=== PATIENT | male | born 1955 | race Caucasian/White ===

== ENCOUNTER 2023-06-16 09:59 | Outpatient (AMB) | payer MEDICARE, SELFPAY ==
--- NOTE | 2023-06-16 10:37 | HO.NEPHOV ---
HPI HPI Comments History of Present Illness Details I had the privilege of seeing Hernan for evaluation of labile hypertension. He has no history of coronary artery disease, CVA, CHF, renal artery stenosis, peripheral arterial disease or carotid stenosis. He claimed to have borderline high blood pressure for some time which had been progressively getting higher and his primary care physician had started him on amlodipine 10 mg daily. His blood pressure continues to be on the higher side during the day. He does not have any chest pain, abdominal pain, shortness of breath, proximal nocturnal dyspnea, orthopnea, pedal edema or urinary symptoms. His renal functions are normal. He denies flushing, palpitation, diarrhea, weight loss, uncontrolled thyroid disease or orthostatic symptoms. He does not take any excess nonsteroidal anti-inflammatory medications and try to contain sodium in his diet. He is a bit anxious but otherwise feels well. [facility] Medical History (Updated 06/16/23 @ 21:04 by Kve Arenas MD) Swelling of right hand Myofascial neck pain Moderate persistent asthma Migraine Major depression Hyperlipidemia History of malignant neoplasm of prostate Headache History of adenomatous polyp of colon Erectile dysfunction Cervical radiculopathy Benign essential hypertension Anxiety Surgical History (Updated 06/16/23 @ 10:48 by Talya Swartz MA) History of hernia repair History of shoulder surgery History of prostatectomy History of partial colectomy Family History (Updated 06/16/23 @ 10:49 by Talya Swartz MA) Mother Asthma COPD (chronic obstructive pulmonary disease) Colon cancer Hypertension Social History (Updated 06/16/23 @ 10:43 by Talya Swartz MA) Alcohol intake: never Patient Tobacco Use Status: Former Tobacco user Vital Signs 06/16/23 10:44 Height 5 ft 9 in Weight 158 lb 8 oz BMI 23.4 BP 140/80 H Blood Pressure Location Lt brachial Position Sitting Pulse 69 Pulse Source Pulse Oximeter Physical Exam Vital Signs: Last Vital Signs Pulse 69 06/16/23 10:44 BP 140/80 H 06/16/23 10:44 BMI result Body Mass Index 23.4 Const General: comfortable and no acute distress Orientation/consciousness: patient oriented x3 HEENT Head: Yes normocephalic Mouth: Normal oral and palatal mucosa present Eyes EOM: EOMs intact bilaterally Neck Neck: Yes supple Resp Auscultation: clear to auscultation bilaterally Cardio Jugular venous distension: no JVD Rate: regular rate GI Palpation (GI): Soft to palpation Auscultation: normal bowel sounds General: Yes no CVA tenderness Back/Spine/Pelvis Back: no CVA tenderness Skin General skin exam: no rashes or lesions noted Neuro General: patient oriented x3 and moves all extremities Extrem General: Yes no pedal edema Assessment & Plan Assessment & Plan (1) Hypertension: Code(s): I10 - Essential (primary) hypertension Qualifiers: Hypertension type: primary hypertension Qualified Code(s): I10 - Essential (primary) hypertension Plan Hernan has hypertensive disorder. He has no history of coronary disease, CVA, CHF, peripheral arterial disease, renal artery stenosis or carotid artery stenosis. He has no orthostatic symptoms, flushing, sweating, palpitation, diarrhea. He has no history of hypokalemia, hypercalcemia or uncontrolled thyroid disease. He denies any symptoms of sleep apnea. He had been taking amlodipine 10 mg daily. I ordered secondary workup including Doppler of his renal arteries given his serum creatinine is 1.1. Given his anxious personality, I started him on metoprolol succinate 12.5 mg daily. I explained side effects of the same. He is going to closely monitor his blood pressure at home as well. I will arrange a 24 hour blood pressure monitor through my office for further evaluation. He should contain his sodium in the diet, maintain good activity and good hydration. All his questions were answered. Time spent for retrieving data, patient encounter and documentation 39 minutes. Follow-up given. Orders: Orders TSH reflex Free T4 Today I10 - Essential (primary) hypertension US renal doppler Today I10 - Essential (primary) hypertension UA and rflx microscopic Today I10 - Essential (primary) hypertension Protein Creatinine Ratio, Ur Today I10 - Essential (primary) hypertension Metanephrines, Plasma Today I10 - Essential (primary) hypertension US renal BI Today I10 - Essential (primary) hypertension Medications: New metoprolol succinate ER 12.5 mg (1/2 x 25 mg) PO DAILY 30 days 15 tabs 3RF Coding Level of Care Code New Pt Level 4 (92978) Diagnoses Primary hypertension I10 Hypertension type: primary hypertension Results Reviewed Nephrology Results: No Data to Display
[2023-06-16 10:44] VITALS: BP 140/80; PULSE 69; BMI 23.4
== END 2023-06-16 11:23 | disposition home or self-care (01) ==
PROVIDERS: PCP Family Medicine; Visit Provider Internal Medicine Nephrology
DX: I10 Essential (primary) hypertension (principal)
CPT/HCPCS: 99204

== ENCOUNTER → 2023-06-16 09:59 | Outpatient (BNVA) | payer MEDICARE, SELFPAY | PROVIDERS: PCP Family Medicine; Visit Provider Internal Medicine Nephrology | DX: I10 Essential (primary) hypertension (principal) | CPT/HCPCS: 99202 ==

== ENCOUNTER 2023-07-13 09:14 | Outpatient (REF) | payer MEDICARE, SELFPAY ==
[2023-07-13 11:14] LABS: Appearance Urine Clear; Color Urine Yellow; Glucose Urine UA Negative (Negative); Leukocyte Esterase Urine Negative (Negative); Nitrite Urine Negative (Negative); PH 5.5 (5.0-9.0); Specific Gravity - Urine 1.015 (1.005-1.025); Urine Blood Negative (Negative); Urine Ketones Negative (Negative); Urine Protein Negative (Neg-Trace)
[2023-07-13 12:18] LABS: Total Protein Urine Random < 7 mg/dL (<12)
[2023-07-13 12:31] LABS: TSH reflex Free T4 1.63 uIU/mL (0.32-4.0)
== END 2023-07-13 09:15 | disposition home or self-care (01) ==
LOC: HO.WFDLDS 09:14
PROVIDERS: Visit Provider Internal Medicine Nephrology
DX: I10 Essential (primary) hypertension (principal)
CPT/HCPCS: 36415; 81003; 82570; 83835; 84156; 84443

== ENCOUNTER 2023-07-14 07:53 | Outpatient (REF) | payer MEDICARE, SELFPAY ==
[2023-07-21 06:13] LABS: Metanephrine, Free 43 pg/mL (<=57); Normetanephrines, Free 129 pg/mL (<=148); Total Metanephrine, Free 172 pg/mL (<=205)
== END 2023-07-14 07:54 | disposition home or self-care (01) ==
LOC: HO.LAB 07:53
PROVIDERS: Visit Provider Internal Medicine Nephrology
DX: I10 Essential (primary) hypertension (principal)
CPT/HCPCS: 36415; 83835

== ENCOUNTER 2023-07-19 09:59 | Outpatient (REF) | payer MEDICARE, SELFPAY ==
--- NOTE | ~2023-07-19 | US_ITS ---
EXAMINATION: ULTRASOUND RENAL WITH DOPPLER CLINICAL INFORMATION: Essential hypertension. COMPARISON: None. TECHNIQUE: Real-time grayscale, color Doppler, and duplex Doppler evaluation of the kidneys and renal vasculature was performed. FINDINGS: RENAL MEASUREMENTS: Right: 10.3 x 5.5 x 5.4 cm (Sag x AP x TV) Left: 10.1 x 5.2 x 5.1 cm (Sag x AP x TV) The renal parenchyma appears normal. No hydronephrosis or nephrolithiasis. DOPPLER INTERROGATION: AORTA: Mid aorta: 131 cm/sec RIGHT MAIN RENAL ARTERY: Proximal: 142 cm/sec Mid: 84 cm/sec Distal: 81 cm/sec LEFT MAIN RENAL ARTERY: Proximal: 170 cm/sec Mid: 145 cm/sec Distal: 87 cm/sec RENAL-AORTIC RATIO (RAR): Right: Not calculated due to mid aortic velocity outside of range 40-100 cm/s making RAR inaccurate. Left: Not calculated due to mid aortic velocity outside of range 40-100 cm/s making RAR inaccurate. SEGMENTAL RESISTIVE INDICES: Right: 0.71-0.78 Left: 0.71-0.77 RENAL VEINS: Right: Patent with normal waveform. Left: Patent with normal waveform. US/US renal doppler IMPRESSION: No evidence of hemodynamically significant peripheral arterial disease.
--- NOTE | ~2023-07-19 | US_ITS ---
EXAMINATION: ULTRASOUND RENAL WITH DOPPLER CLINICAL INFORMATION: Essential hypertension. COMPARISON: None. TECHNIQUE: Real-time grayscale, color Doppler, and duplex Doppler evaluation of the kidneys and renal vasculature was performed. FINDINGS: RENAL MEASUREMENTS: Right: 10.3 x 5.5 x 5.4 cm (Sag x AP x TV) Left: 10.1 x 5.2 x 5.1 cm (Sag x AP x TV) The renal parenchyma appears normal. No hydronephrosis or nephrolithiasis. DOPPLER INTERROGATION: AORTA: Mid aorta: 131 cm/sec RIGHT MAIN RENAL ARTERY: Proximal: 142 cm/sec Mid: 84 cm/sec Distal: 81 cm/sec LEFT MAIN RENAL ARTERY: Proximal: 170 cm/sec Mid: 145 cm/sec Distal: 87 cm/sec RENAL-AORTIC RATIO (RAR): Right: Not calculated due to mid aortic velocity outside of range 40-100 cm/s making RAR inaccurate. Left: Not calculated due to mid aortic velocity outside of range 40-100 cm/s making RAR inaccurate. SEGMENTAL RESISTIVE INDICES: Right: 0.71-0.78 Left: 0.71-0.77 RENAL VEINS: Right: Patent with normal waveform. Left: Patent with normal waveform. US/US renal BI IMPRESSION: No evidence of hemodynamically significant peripheral arterial disease.
== END 2023-07-19 10:00 | disposition home or self-care (01) ==
LOC: HO.US 09:59
PROVIDERS: PCP Family Medicine; Visit Provider Internal Medicine Nephrology
DX: I10 Essential (primary) hypertension (principal)
CPT/HCPCS: 76775; 93975

== ENCOUNTER 2023-07-28 09:59 | Outpatient (AMB) | payer MEDICARE, SELFPAY ==
[2023-07-28 10:18] VITALS: BP 118/60; PULSE 66; O2SAT 97; BMI 24.5
--- NOTE | 2023-07-28 10:18 | HO.NEPHOV ---
HPI HPI Comments History of Present Illness Details I had the privilege of seeing Hernan for follow up of labile hypertension. He has no history of coronary artery disease, CVA, CHF, renal artery stenosis, peripheral arterial disease or carotid stenosis. He claimed to have borderline high blood pressure for some time which had been progressively getting higher and his primary care physician had initially started him on amlodipine 10 mg daily. He was started on metoprolol at the last visit in addition. He does not have any chest pain, abdominal pain, shortness of breath, proximal nocturnal dyspnea, orthopnea, pedal edema or urinary symptoms. His renal functions are normal. He denies flushing, palpitation, diarrhea, weight loss, uncontrolled thyroid disease or orthostatic symptoms. He does not take any excess nonsteroidal anti-inflammatory medications and try to contain sodium in his diet. He feels well [facility] Medical History (Updated 06/16/23 @ 21:04 by Kev Arenas MD) Swelling of right hand Myofascial neck pain Moderate persistent asthma Migraine Major depression Hyperlipidemia History of malignant neoplasm of prostate Headache History of adenomatous polyp of colon Erectile dysfunction Cervical radiculopathy Benign essential hypertension Anxiety Surgical History History of hernia repair History of shoulder surgery History of prostatectomy History of partial colectomy Family History Mother Asthma COPD (chronic obstructive pulmonary disease) Colon cancer Hypertension Social History Alcohol intake: never Patient Tobacco Use Status: Former Tobacco user Vital Signs 07/28/23 10:18 Height 5 ft 9 in Weight 166 lb 2 oz BMI 24.5 BP 118/60 Blood Pressure Location Rt brachial Position Sitting Pulse 66 Pulse Source Pulse Oximeter Pulse Oximetry (%) 97 Oxygen Delivery Method Room Air Physical Exam Vital Signs: Last Vital Signs Pulse 66 07/28/23 10:18 BP 118/60 07/28/23 10:18 Pulse Ox 97 07/28/23 10:18 Oxygen Delivery Method Room Air 07/28/23 10:18 BMI result Body Mass Index 24.5 Const General: comfortable and no acute distress Orientation/consciousness: patient oriented x3 HEENT Head: Yes normocephalic Mouth: Normal oral and palatal mucosa present Eyes EOM: EOMs intact bilaterally Neck Neck: Yes supple Resp Auscultation: clear to auscultation bilaterally Cardio Jugular venous distension: no JVD Rate: regular rate GI Palpation (GI): Soft to palpation Auscultation: normal bowel sounds General: Yes no CVA tenderness Back/Spine/Pelvis Back: no CVA tenderness Skin General skin exam: no rashes or lesions noted Neuro General: patient oriented x3 and moves all extremities Extrem General: Yes no pedal edema Assessment & Plan Assessment & Plan (1) Hypertension: Code(s): I10 - Essential (primary) hypertension Qualifiers: Hypertension type: primary hypertension Qualified Code(s): I10 - Essential (primary) hypertension Plan Hernan has hypertensive disorder. He has no history of coronary disease, CVA, CHF, peripheral arterial disease, renal artery stenosis or carotid artery stenosis. He has no orthostatic symptoms, flushing, sweating, palpitation, diarrhea. He has no history of hypokalemia, hypercalcemia or uncontrolled thyroid disease. He denies any symptoms of sleep apnea. He had been taking amlodipine 10 mg daily. I ordered secondary workup including Doppler of his renal arteries were unremarkable. Given his anxious personality, He should continue metoprolol succinate 12.5 mg daily. He is aware of the side effects of the same. He is going to closely monitor his blood pressure at home as well. I plan to slowly increase his metoprolol with time and cut back on Amlodipine if possible. He should contain his sodium in the diet, maintain good activity and good hydration. All his questions were answered. Coding Level of Care Code Est Pt Level 3 (79234) Diagnoses Primary hypertension I10 Hypertension type: primary hypertension Results Reviewed Nephrology Results: Urine Protein Negative mg/dL (Neg-Trace) 07/13/23 Urine Creatinine 58.30 mg/dL 07/13/23 Protein/Creatinin Ratio TNP 07/13/23 Renal US 07/19/23
== END 2023-07-28 10:45 | disposition home or self-care (01) ==
PROVIDERS: PCP Family Medicine; Visit Provider Internal Medicine Nephrology
DX: I10 Essential (primary) hypertension (principal)
CPT/HCPCS: 99213

== ENCOUNTER → 2023-07-28 09:59 | Outpatient (BNVA) | payer MEDICARE, SELFPAY | PROVIDERS: PCP Family Medicine; Visit Provider Internal Medicine Nephrology | DX: I10 Essential (primary) hypertension (principal); Z79.899 Other long term (current) drug therapy | CPT/HCPCS: 99212 ==

== ENCOUNTER 2023-11-23 07:10 | Outpatient (REF) | payer MEDICARE, SELFPAY ==
[2023-11-23 11:51] LABS: Anion Gap 16 (12-20); Blood Urea Nitrogen 15 mg/dL (9-16); Carbon Dioxide 23 mmol/L (22-29); Chloride 105 mmol/L (96-108); Estimated Glomerular Filt Rate > 60; Sodium 140 mmol/L (135-145)
[2023-11-23 12:45] LABS: Creatinine Urine 23.84 mg/dL; Total Protein Urine Random < 7 mg/dL (<12)
== END 2023-11-23 07:11 | disposition home or self-care (01) ==
LOC: HO.WFDLDS 07:10
PROVIDERS: Visit Provider Internal Medicine Nephrology
DX: I10 Essential (primary) hypertension (principal)
CPT/HCPCS: 36415; 80051; 82565; 82570; 84156; 84520

== ENCOUNTER 2023-11-26 09:23 | Outpatient (AMB) | payer MEDICARE, SELFPAY ==
[2023-11-26 09:26] VITALS: BP 124/70; PULSE 80; O2SAT 97; BMI 23.3
--- NOTE | 2023-11-26 09:26 | HO.NEPHOV_ITS ---
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 He has no history of coronary artery disease, CVA, CHF, renal artery stenosis, peripheral arterial disease or carotid stenosis. He claimed to have borderline high blood pressure for some time which had been progressively getting higher and his primary care physician had initially started him on amlodipine 10 mg daily. He was started on metoprolol at the last visit in addition. He does not have any chest pain, abdominal pain, shortness of breath, proximal nocturnal dyspnea, orthopnea, pedal edema or urinary symptoms. His renal functions are normal. He denies flushing, palpitation, diarrhea, weight loss, uncontrolled thyroid disease or orthostatic symptoms. He does not take any excess nonsteroidal anti-inflammatory medications and try to contain sodium in his di et. His BP is well controlled and he feels well [facility] Medical History (Updated 06/16/23 @ 21:04 by Kev Arenas MD) Swelling of right hand Myofascial neck pain Moderate persistent asthma Migraine Major depression Hyperlipidemia History of malignant neoplasm of prostate Headache History of adenomatous polyp of colon Erectile dysfunction Cervical radiculopathy Benign essential hypertension Anxiety Surgical History History of hernia repair History of shoulder surgery History of prostatectomy History of partial colectomy Family History Mother Asthma COPD (chronic obstructive pulmonary disease) Colon cancer Hypertension Social History Alcohol intake: never Patient Tobacco Use Status: Former Tobacco user Physical Exam Vital Signs: Last Vital Signs Pulse 80 11/26/23 09:26 BP 124/70 11/26/23 09:26 Pulse Ox 97 11/26/23 09:26 Oxygen Delivery Method Room Air 11/26/23 09:26 BMI result Body Mass Index 23.3 Const General: comfortable and no acute distress Orientation/consciousness: patient oriented x3 HEENT Head: Yes normocephalic Mouth: Normal oral and palatal mucosa present Eyes EOM: EOMs intact bilaterally Neck Neck: Yes supple Resp Auscultation: clear to auscultation bilaterally Cardio Jugular venous distension: no JVD Rate: regular rate GI Palpation (GI): Soft to palpation Auscultation: normal bowel sounds General: Yes no CVA tenderness Back/Spine/Pelvis Back: no CVA tenderness Skin General skin exam: no rashes or lesions noted Neuro General: patient oriented x3 and moves all extremities Extrem General: Yes no pedal edema Results Reviewed Nephrology Results: Sodium 140 mmol/L (135-145) 11/23/23 Potassium 4.0 mmol/L (3.3-5.1) 11/23/23 Chloride 105 mmol/L (96-108) 11/23/23 Carbon Dioxide 23 mmol/L (22-29) 11/23/23 BUN 15 mg/dL (9-16) 11/23/23 Creatinine 0.88 mg/dL (0.5-1.4) 11/23/23 Urine Protein Negative mg/dL (Neg-Trace) 07/13/23 Urine Creatinine 23.84 mg/dL 11/23/23 Protein/Creatinin Ratio TNP 11/23/23 Renal US 07/19/23 Assessment & Plan Assessment & Plan (1) Hypertension: Code(s): I10 - Essential (primary) hypertension Category: Medical Qualifiers: Hypertension type: primary hypertension Qualified Code(s): I10 - Essential (primary) hypertension Plan Hernan has hypertensive disorder. He has no history of coronary disease, CVA, CHF, peripheral arterial disease, renal artery stenosis or carotid artery stenosis. He has no orthostatic symptoms, flushing, sweating, palpitation, diarrhea. He has no history of hypokalemia, hypercalcemia or uncontrolled thyroid disease. He denies any symptoms of sleep apnea. He had been taking amlodipine 10 mg daily. I ordered secondary workup including Doppler of his renal arteries were unremarkable. Given his anxious personality, He should continue metoprolol succinate 12.5 mg daily. He is aware of the side effects of the same. He is going to closely monitor his blood pressure at home as well. I plan to slowly increase his metoprolol with time and cut back on Amlodipine if possible. He should contain his sodium in the diet, maintain good activity and good hydration. All his questions were answered. Coding Level of Care Code Est Pt Level 4 (89276) Diagnoses Primary hypertension I10 Hypertension type: primary hypertension
== END 2023-11-26 09:40 | disposition home or self-care (01) ==
PROVIDERS: PCP Family Medicine; Visit Provider Internal Medicine Nephrology
DX: I10 Essential (primary) hypertension (principal)
CPT/HCPCS: 99214

== ENCOUNTER → 2023-11-26 09:23 | Outpatient (BNVA) | payer MEDICARE, SELFPAY | PROVIDERS: PCP Family Medicine; Visit Provider Internal Medicine Nephrology | DX: I10 Essential (primary) hypertension (principal) | CPT/HCPCS: 99212 ==

== ENCOUNTER 2024-05-26 09:36 | Outpatient (AMB) | payer MEDICARE, SELFPAY ==
--- NOTE | 2024-05-26 09:39 | HO.NEPHOV_ITS ---
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 He has no history of coronary artery disease, CVA, CHF, renal artery stenosis, peripheral arterial disease or carotid stenosis. He claimed to have borderline high blood pressure for some time which had been progressively getting higher and his primary care physician had initially started him on amlodipine 10 mg daily. He was started on metoprolol at the last visit in addition. He does not have any chest pain, abdominal pain, shortness of breath, proximal nocturnal dyspnea, orthopnea, pedal edema or urinary symptoms. His renal functions are normal. He denies flushing, palpitation, diarrhea, weight loss, uncontrolled thyroid disease or orthostatic symptoms. He does not take any excess nonsteroidal anti- inflammatory medications and try to contain sodium in his diet. His BP is well controlled and he feels well [facility] Medical History (Updated 06/16/23 @ 21:04 by Kev Arenas MD) Swelling of right hand Myofascial neck pain Moderate persistent asthma Migraine Major depression Hyperlipidemia History of malignant neoplasm of prostate Headache History of adenomatous polyp of colon Erectile dysfunction Cervical radiculopathy Benign essential hypertension Anxiety Surgical History History of hernia repair History of shoulder surgery History of prostatectomy History of partial colectomy Family History Mother Asthma COPD (chronic obstructive pulmonary disease) Colon cancer Hypertension Social History Alcohol intake: never Patient Tobacco Use Status: Former Tobacco user Review of Systems Const All systems reviewed & are unremarkable except as noted in HPI and below Physical Exam Vital Signs: Last Vital Signs BP 130/70 05/26/24 09:40 BMI result Body Mass Index 23.9 Const General: comfortable and no acute distress Orientation/consciousness: patient oriented x3 HEENT Head: Yes normocephalic Mouth: Normal oral and palatal mucosa present Eyes EOM: EOMs intact bilaterally Neck Neck: Yes supple Resp Auscultation: clear to auscultation bilaterally Cardio Jugular venous distension: no JVD Rate: regular rate GI Palpation (GI): Soft to palpation Auscultation: normal bowel sounds General: Yes no CVA tenderness Back/Spine/Pelvis Back: no CVA tenderness Skin General skin exam: no rashes or lesions noted Neuro General: patient oriented x3 and moves all extremities Extrem General: Yes no pedal edema Results Reviewed Nephrology Results: Sodium 140 mmol/L (135-145) 11/23/23 Potassium 4.0 mmol/L (3.3-5.1) 11/23/23 Chloride 105 mmol/L (96-108) 11/23/23 Carbon Dioxide 23 mmol/L (22-29) 11/23/23 BUN 15 mg/dL (9-16) 11/23/23 Creatinine 0.88 mg/dL (0.5-1.4) 11/23/23 Urine Protein Negative mg/dL (Neg-Trace) 07/13/23 Urine Creatinine 23.84 mg/dL 11/23/23 Protein/Creatinin Ratio TNP 11/23/23 Renal US 07/19/23 Assessment & Plan Assessment & Plan (1) Hypertension: Code(s): I10 - Essential (primary) hypertension Category: Medical Qualifiers: Hypertension type: primary hypertension Qualified Code(s): I10 - Essential (primary) hypertension Plan Hernan has hypertensive disorder. He has no history of coronary disease, CVA, CHF, peripheral arterial disease, renal artery stenosis or carotid artery stenosis. He has no orthostatic symptoms, flushing, sweating, palpitation, diarrhea. He has no history of hypokalemia, hypercalcemia or uncontrolled thyroid disease. He denies any symptoms of sleep apnea. He had been taking amlodipine 10 mg daily. I ordered secondary workup including Doppler of his renal arteries were unremarkable. Given his anxious personality, He should continue metoprolol succinate 12.5 mg daily. He is aware of the side effects of the same. He is going to closely monitor his blood pressure at home as well. He should contain his sodium in the diet, maintain good activity and good hydration. All his questions were answered Coding Level of Care Code Est Pt Level 4 (42361) Diagnoses Primary hypertension I10 Hypertension type: primary hypertension
[2024-05-26 09:40] VITALS: BP 130/70; BMI 23.9
== END 2024-05-26 09:52 | disposition home or self-care (01) ==
PROVIDERS: PCP Family Medicine; Visit Provider Internal Medicine Nephrology
DX: I10 Essential (primary) hypertension (principal)
CPT/HCPCS: 99214

== ENCOUNTER → 2024-05-26 09:36 | Outpatient (BNVA) | payer MEDICARE, SELFPAY | PROVIDERS: PCP Family Medicine; Visit Provider Internal Medicine Nephrology | DX: I10 Essential (primary) hypertension (principal) | CPT/HCPCS: 99212 ==

== ENCOUNTER 2025-05-23 09:31 | Outpatient (AMB) | payer MEDICARE, SELFPAY ==
--- NOTE | 2025-05-23 09:34 | HO.NEPHOV ---
Vital Signs 05/23/25 09:36 Height 5 ft 9 in Weight 157 lb 6 oz BMI 23.2 BP 110/60 Blood Pressure Location Rt brachial Position Sitting Intake Visit Reasons: f/u appt. Fraud Examiner Required: No Accompanied by: Self / Same As Patient Allergies No Known Allergies Allergy (Verified 05/23/25 09:36) HPI Comments Details: Hernan was seen in follow up for hypertension. He has no history of coronary artery disease, CVA, CHF, renal artery stenosis, peripheral arterial disease or carotid stenosis. He claimed to have borderline high blood pressure for some time which had been progressively getting higher and his primary care physician had initially started him on amlodipine 10 mg daily. He was started on metoprolol at the last visit in addition. He does not have any chest pain, abdominal pain, shortness of breath, proximal nocturnal dyspnea, orthopnea, pedal edema or urinary symptoms. His renal functions are normal. He denies flushing, palpitation, diarrhea, weight loss, uncontrolled thyroid disease or orthostatic symptoms. He does not take any excess nonsteroidal anti-inflammatory medications and try to contain sodium in his diet. His BP is well controlled and he feels well FOR[facility], [facility] Medical History (Updated 06/16/23 @ 21:04 by Kev Arenas MD) Swelling of right hand Myofascial neck pain Moderate persistent asthma Migraine Major depression Hyperlipidemia History of malignant neoplasm of prostate Headache History of adenomatous polyp of colon Erectile dysfunction Cervical radiculopathy Benign essential hypertension Anxiety Surgical History History of hernia repair History of shoulder surgery History of prostatectomy History of partial colectomy Family History Mother Asthma COPD (chronic obstructive pulmonary disease) Colon cancer Hypertension Social History Alcohol intake: never Patient Tobacco Use Status: Former Tobacco user Review of Systems Const All systems reviewed & are unremarkable except as noted in HPI and below Physical Exam Vital Signs: Last Vital Signs BP 110/60 05/23/25 09:36 BMI result Body Mass Index 23.2 Const General: comfortable and no acute distress Orientation/consciousness: patient oriented x3 HEENT Head: Yes normocephalic Mouth: Normal oral and palatal mucosa present Eyes EOM: EOMs intact bilaterally Neck Neck: Yes supple Resp Auscultation: clear to auscultation bilaterally Cardio Jugular venous distension: no JVD Rate: regular rate GI Palpation (GI): Soft to palpation Auscultation: normal bowel sounds General: Yes no CVA tenderness Back/Spine/Pelvis Back: no CVA tenderness Skin General skin exam: no rashes or lesions noted Neuro General: patient oriented x3 and moves all extremities Extrem General: Yes no pedal edema Assessment & Plan Assessment & Plan (1) Hypertension: Code(s): I10 - Essential (primary) hypertension Category: Medical Qualifiers: Hypertension type: primary hypertension Qualified Code(s): I10 - Essential (primary) hypertension Plan Hernan has hypertensive disorder. He has no history of coronary disease, CVA, CHF, peripheral arterial disease, renal artery stenosis or carotid artery stenosis. He has no orthostatic symptoms, flushing, sweating, palpitation, diarrhea. He has no history of hypokalemia, hypercalcemia or uncontrolled thyroid disease. He denies any symptoms of sleep apnea. He had been taking amlodipine 10 mg daily. I ordered secondary workup including Doppler of his renal arteries were unremarkable. Given his anxious personality, He should continue metoprolol succinate 12.5 mg daily. He is aware of the side effects of the same. He is going to closely monitor his blood pressure at home as well. He should contain his sodium in the diet, maintain good activity and good hydration. All his questions were answered Orders: Orders Creatinine 1 Year I10 - Essential (primary) hypertension Protein Creatinine Ratio, Ur 1 Year I10 - Essential (primary) hypertension Blood Urea Nitrogen 1 Year I10 - Essential (primary) hypertension Electrolytes 1 Year I10 - Essential (primary) hypertension Medications: New amlodipine 10 mg PO DAILY 90 tabs 4RF Changed From metoprolol succinate ER 12.5 mg (1/2 x 25 mg) PO DAILY 30 days 15 tabs 3RF To metoprolol succinate ER 12.5 mg (1/2 x 25 mg) PO DAILY 45 tabs 4RF 90 days Coding Level of Care Code Est Pt Level 4 (31284) Diagnoses Primary hypertension I10 Hypertension type: primary hypertension
[2025-05-23 09:36] VITALS: BP 110/60; BMI 23.2
== END 2025-05-23 09:54 | disposition home or self-care (01) ==
PROVIDERS: PCP Family Medicine; Visit Provider Internal Medicine Nephrology
DX: I10 Essential (primary) hypertension (principal)
CPT/HCPCS: 99214

== ENCOUNTER → 2025-05-23 09:31 | Outpatient (BNVA) | payer MEDICARE, SELFPAY | PROVIDERS: PCP Family Medicine; Visit Provider Internal Medicine Nephrology | DX: I10 Essential (primary) hypertension (principal) | CPT/HCPCS: 99212 ==